=== PATIENT | male | born 1980 | race Caucasian/White ===

== ENCOUNTER 2020-05-25 15:41 | Emergency (ER) | payer SELFPAY ==
[2020-05-25 15:58] VITALS: BP 125/80
--- NOTE | 2020-05-25 16:46 | ER Document Report ---
ED Skin Rash/Insect Bite/Abscs - General Chief Complaint: Rash Stated Complaint: RASH/OPEN SORES Time Seen by Provider: 05/25/20 16:34 Primary Care Provider: [facility] [Provider Group] - Follow up as needed NHUNG YO [NO LOCAL MD] - Follow up as needed Mode of Arrival: Ambulatory Notes: Patient states that he started approximately 4 days ago with a lesion on his upper lip that he has been scratching and has moved over to the right side of his face. Patient has a history of MRSA. He feels this is a similar presentation. He does state that the lesion on the right side of his face did pop and drained a little bit yesterday. He states he has had to have antibiotics for this in the past and has been diagnosed with impetigo in the past. Patient does admit to smoking. Denies any fevers. No nausea or vomiting. Past Medical History - General Information source: Patient - Social History Smoking Status: Current Every Day Smoker Cigarette use (# per day): Yes Chew tobacco use (# tins/day): No Smoking Education Provided: Yes Frequency of alcohol use: None Drug Abuse: None Lives with: Spouse/Significant other Family History: Reviewed & Not Pertinent Physical Exam - Vital signs Vitals: Temp Pulse Resp BP Pulse Ox 98.2 F 106 H 16 125/80 98 05/25/20 15:53 05/25/20 15:53 05/25/20 15:53 05/25/20 15:53 05/25/20 15:53 Interpretation: Tachycardic - Notes Notes: PHYSICAL EXAMINATION: GENERAL: Patient is well-nourished well-developed 40-year-old male no apparent distress on examination. HEAD: normocephalic. Examination of patient's facial features show he has multiple lesions on his face mostly around the upper lip and the right side of his cheek and his minimal enriquez growth with the largest lesion being about 2 cm round on the right cheek area. It is a scaly silvery type presentation that goes along with impetigo. He has other multiple lesions that are much smaller in the generalized area of the upper lip and a few more on the right side of the face. There is no overt signs of abscess. Minimal type cellulitis presentation. EYES: Pupils equal round and reactive to light, extraocular movements intact, sclera anicteric, conjunctiva are normal. ENT: Nares patent, oropharynx clear without exudates. Moist mucous membranes. NECK: Normal range of motion, s with the largest lesion being approximately LUNGS: Breath sounds clear to auscultation bilaterally and equal. No wheezes rales or rhonchi. HEART: Regular rate and rhythm without murmurs NEUROLOGICAL: Normal speech, normal gait. Normal sensory, motor exams PSYCH: Normal mood, normal affect. SKIN: Examination patient's face as described above also there are other small areas on his body where he has scratched and appears to have spread the staph infection to his hands and some on his lower legs and and abdomen. All of them very small but red and a few are still silvery scaly appearing which also goes along with a staph infection. Course - Re-evaluation Re-evalutation: 05/26/20 01:06 Given patient's history of previous impetigo and methicillin-resistant staph aureus and the presentation of impetigo I went ahead and treated him with 2 antibiotics both Bactrim and Keflex. Patient has been cautioned that if this should start spreading anymore or he spikes a fever he is to return to ER for reevaluation and he has agreed to this. I have also written for some Bactroban ointment. - Vital Signs Vital signs: Temp Pulse Resp BP Pulse Ox 98.2 F 106 H 16 125/80 98 05/25/20 15:53 05/25/20 15:53 05/25/20 15:53 05/25/20 15:53 05/25/20 15:53 - Laboratory Results Critical Laboratory Results Reviewed: No Critical Results - Radiology Results Critical Radiology Results Reviewed: No Critical Results Discharge - Discharge Clinical Impression: Impetigo any site Condition: Stable Disposition: HOME, SELF-CARE Instructions: Bactroban Ointment ([facility]), Cephalexin ([facility]), Impetigo ([facility]) Additional Instructions: Patient have a history of methicillin-resistant staph aureus which is called MRSA and we will place you on 2 antibiotics plus the ointment that will help clear it up. Know that these weepy lesions that you have are contagious so do not rub up against anybody wash your hands frequently to include your fingernails. Take all the antibiotics until completion now if for any reason this continues to expand or get worse he spike fevers or have any concerns all return to ER for reevaluation at once. Prescriptions: Sulfamethoxazole/Trimethoprim [Bactrim Ds Tablet] 1 each PO BID #20 tablet Mupirocin [Bactroban 2% Ointment 22 gm] 1 applic TP TID #1 tube Cephalexin Monohydrate [Keflex 500 mg Capsule] 500 mg PO Q6H 10 Days #40 capsule Forms: Return to Work Referrals: LOCAL,NO [NO LOCAL MD] - Follow up as needed [facility] [Provider Group] - Follow up as needed
== END 2020-05-25 17:20 | disposition home or self-care (01) ==
LOC: ER 15:41
DX: L01.00 Impetigo, unspecified (principal); Z86.14 Personal history of Methicillin resistant Staphylococcus aureus infection; F17.210 Nicotine dependence, cigarettes, uncomplicated
CPT/HCPCS: 99283